=== PATIENT | female | born 1975 ===

== ENCOUNTER 2019-02-24 09:17 | Emergency (ER) | payer OTHER ==
[2019-02-24 09:28] VITALS: BMI 32.4
[2019-02-24] MEDS ORDERED: Tetracaine 0.5% Ophth 2 ML BOTTLE OS STA (09:42)
[2019-02-24] MEDS ORDERED: Fluorescein 1 mg Ophthalmic Strip OS STA (09:42)
[2019-02-24] MEDS ORDERED: Tdap Vaccine 0.5 ml Vial (10-64 yrs) IM ONE ×2 (09:47→10:06)
--- NOTE | 2019-02-24 09:53 | ED PDOC ---
HPI: Eye Injury/Pain Time Seen by Provider: 02/24/19 09:36 Chief Complaint (Nursing): Eye Problem Chief Complaint (Provider): Eye Problem History Per: Family (daughter) History/Exam Limitations: no limitations Onset/Duration Of Symptoms: Hrs Current Symptoms Are (Timing): Still Present Additional Complaint(s): Patient is a 43 y/o female with no significant PMHx who presents to the ED for evaluation of left eye pain onset last night. Daughter states patient was cooking fish in oil when the oil splashed into her left eye. Patient is now complaining of redness and pain to the white part of her eye. Patient denies drainage. Of note, patient's Tetanus is not up to date. PCP: None Provided Past Medical History Reviewed: Historical Data, Nursing Documentation, Vital Signs Vital Signs: Last Vital Signs Temp 98.5 F 02/24/19 09:29 Pulse 79 02/24/19 09:29 Resp 20 02/24/19 09:29 BP 130/84 02/24/19 09:29 Pulse Ox 97 02/24/19 09:29 - Medical History PMH: No Chronic Diseases - Surgical History Surgical History: No Surg Hx - Family History Family History: States: No Known Family Hx - Immunization History Hx Tetanus Toxoid Vaccination: No - Home Medications Home Medications: Ambulatory Orders Medication Instructions Recorded Erythromycin 0.5% [Erythromycin] 0.5 inch OS QID 7 Days #1 tube 02/24/19 - Allergies Allergies/Adverse Reactions: Allergies Allergy/AdvReac Type Severity Reaction Status Date / Time No Known Allergies Allergy Verified 02/24/19 09:40 Review of Systems ROS Statement: Except As Marked, All Systems Reviewed And Found Negative Eyes: Positive for: Pain (left), Redness. Negative for: Other (drainage) Physical Exam - Reviewed Nursing Documentation Reviewed: Yes Vital Signs Reviewed: Yes - Physical Exam Appears: Positive for: No Acute Distress Head Exam: Positive for: ATRAUMATIC, NORMAL INSPECTION, NORMOCEPHALIC Skin: Positive for: Normal Color, Warm, DRY Eye Exam: Positive for: EOMI, PERRL, Conjunctival injection (eye OS). Negative for: Other (abnormal fluorescein uptake) Neck: Positive for: Normal, Painless ROM, Supple Cardiovascular/Chest: Positive for: Regular Rate, Rhythm. Negative for: Murmur Respiratory: Positive for: Normal Breath Sounds. Negative for: Respiratory Distress Neurological/Psych: Positive for: Alert, Oriented (x3) - ECG O2 Sat by Pulse Oximetry: 97 (RA) Pulse Ox Interpretation: Normal Medical Decision Making Medical Decision Making: Time: 941 Impression: Burn to Eye Injury Plan: Tetanus Fluorescein 1 mg OS Tetracaine 1 drop OS Scribe Attestation: Documented by Jose Cruz Brown, acting as a scribe for Anahi Zurita MD. Provider Scribe Attestation: All medical record entries made by the Scribe were at my direction and personally dictated by me. I have reviewed the chart and agree that the record accurately reflects my personal performance of the history, physical exam, medical decision making, and the department course for this patient. I have also personally directed, reviewed, and agree with the discharge instructions and disposition. Disposition - Clinical Impression Clinical Impression: Burn of eye - Disposition Referrals: Ray Maguire MD [Staff Provider] - Disposition Time: 09:57 Condition: STABLE Prescriptions: Erythromycin 0.5% [Erythromycin] 0.5 inch OS QID 7 Days #1 tube Instructions: Chemical Eye Injury Forms: [employer] (Mauritian) Print Language: [place]
[2019-02-24 10:25] VITALS: BP 128/72; PULSE 81; RESP 16; TEMP 98
[2019-02-24 13:10] VITALS: O2SAT 97
== END 2019-02-24 10:25 | disposition home or self-care (01) ==
LOC: H.ER 09:17
DX: T26.40XA Burn of unspecified eye and adnexa, part unspecified, initial encounter (principal)